=== PATIENT | male | born 1990 | race Caucasian/White ===

== ENCOUNTER 2021-09-10 12:08 | Emergency (ER) | payer BC, OTHER ==
[2021-09-10 13:01] VITALS: RESP 18; TEMP 98.8
[2021-09-10] MEDS ORDERED: LIDOCAINE 1% INJ 10MG/ML (20 ML MDV) SQ STA (14:24)
--- NOTE | 2021-09-10 14:59 | ED ---
General Adult HPI - General Chief complaint: Skin/Abscess/Foreign Body Stated complaint: rectal pain Time Seen by Provider: 09/10/21 14:02 Source: patient, RN notes reviewed Mode of arrival: ambulatory Limitations: no limitations - History of Present Illness Initial comments: Patient's a 31-year-old male presented to the emergency room today with chief complaint of a rectal abscess. Patient does admit that he's had some pain and pressure over the last week. He does admit that he went to the family doctor yesterday was then started on a antibiotic of Bactrim. He states it will 3 doses. Patient does admit that it is common larger over the last few days. Patient was concerned. There is no drainage. He denies any other complaints or symptoms. - Related Data Previous Rx's Medication Instructions Recorded Hydrocodone/Acetaminophen [[place] 1 - 2 each PO Q4HR PRN #30 tab 04/06/15 5-325] Allergies Allergy/AdvReac Type Severity Reaction Status Date / Time No Known Allergies Allergy Verified 09/10/21 13:01 Review of Systems ROS Statement: Those systems with pertinent positive or pertinent negative responses have been documented in the HPI. ROS Other: All systems not noted in ROS Statement are negative. Past Medical History Past Medical History: No Reported History History of Any Multi-Drug Resistant Organisms: None Reported Past Surgical History: Hernia Repair Past Anesthesia/Blood Transfusion Reactions: No Reported Reaction Past Psychological History: No Psychological Hx Reported Smoking Status: Never smoker Past Alcohol Use History: Rare Past Drug Use History: None Reported - Past Family History Mother Family Medical History: No Reported History General Exam - General Exam Comments Initial Comments: General: The patient is awake and alert, in no distress, and does not appear acutely ill. Eye: There is normal conjunctiva bilaterally. No signs of icterus. Ears, nose, mouth and throat: There are moist mucous membranes and no oral lesions. Neck: The neck is supple, there is no tenderness or JVD. Musculoskeletal: Normal ROM, no tenderness. Neurological: A&O x 3. CN II-XII intact, There are no obvious motor or sensory deficits. Coordination appears grossly intact. Speech is normal. Skin: Skin is warm and dry and no rashes or lesions are noted. : Patient does have a perirectal abscess the right side. Psychiatric: Cooperative, appropriate mood & affect, normal judgment. Limitations: no limitations Course Vital Signs 09/10/21 12:57 Temperature 98.8 F Pulse Rate 107 H Respiratory 18 Rate Blood Pressure 141/87 O2 Sat by Pulse 98 Oximetry Medical Decision Making - Medical Decision Making Patient was seen in conjunction with Dr. Navarro. Patient was agreeable to attempting to drain abscess here in the emergency room. Patient did have good drainage. He tolerated procedure well. Patient is advised continue his antibi otics that were previously prescribed and follow-up family doctor and general surgeon. Advised return if any symptoms increase or worsen or for any other concerns. Disposition Clinical Impression: Perirectal abscess Disposition: HOME SELF-CARE Condition: Good Instructions (If sedation given, give patient instructions): Abscess Incision and Drainage (ED) Additional Instructions: Please continue warm compresses and antibiotic as prescribed follow-up the family physician/surgeon over the next 2 days if not improving. Return here to emergency room if any symptoms increase worsen or fail concerns. Is patient prescribed a controlled substance at d/c from ED?: No Referrals: Elizabeth Fuentes DO [Primary Care Provider] - 1-2 days Adiel Pierce MD [STAFF PHYSICIAN] - 1-2 days Time of Disposition: 14:58
[2021-09-10 15:17] VITALS: BP 136/82; PULSE 100
== END 2021-09-10 15:17 | disposition home or self-care (01) ==
LOC: EC 12:08
DX: K61.1 Rectal abscess (principal)
CPT/HCPCS: 99283; J2001

== ENCOUNTER → 2024-01-29 | Outpatient (CLI) | payer BC ==
--- NOTE | 2024-01-30 21:25 | CT ---
"EXAMINATION TYPE: CT abdomen pelvis w con DATE OF EXAM: 01/29/2024 COMPARISON: None INDICATION: elevated liver enzymes, LLQ pain DLP: 2051 mGycm, Automated exposure control for dose reduction was used. CONTRAST: 100 mL of Isovue 300. Study performed with Oral Contrast TECHNIQUE: Axial images were obtained from above the diaphragm to the pubic rami in the axial plane a t 5 mm thick sections. Reconstructed images are reviewed on the computer in the coronal plane. FINDINGS: Limited CT sections are obtained the lung bases. The lung bases are clear. CT ABDOMEN: Liver: Normal Spleen: Normal Pancreas: Normal Adrenal glands: The adrenal glands are normal. Gallbladder: Normal Kidneys: No masses are evident. No hydronephrosis is present. No cysts are present. Delayed images were obtained through the kidneys, which remain unremarkable. Aorta: Normal Inferior vena cava: Normal. CT PELVIS: There is some mild inflammatory change adjacent to the distal descending colon and sigmoid colon junc tion. Mild diverticulosis may be present. No free air is evident. No abscess formation is evident. Th ere are loops of bowel which are incompletely distended or lack oral contrast limiting their evaluati on. Appendix: Normal as visualized. Urinary bladder: Normal. Genitourinary structures: Uterus and ovaries are not identified. Osseous structures: No suspicious lytic or sclerotic lesions. IMPRESSION: 1. Mild acute diverticulitis at the junction of the descending colon and sigmoid colon. No abscess f ormation or free air evident. A Yellow level critical message alert has been initiated for Elizabeth Fuentes DO via the [employer] 36 0 | Critical Results System on 01/30/2024 9:23 PM. This message alert has been sent to Elizabeth Fuentes DO via the preferences provided by the clinician for the receipt of Radiology Critical Findings. Mess age ID [id number]."
== END | disposition home or self-care (01) ==
LOC: RADCTMAIN 09:47
PROVIDERS: ATTEND Family Medicine
DX: K57.32 Diverticulitis of large intestine without perforation or abscess without bleeding (principal); R74.01 Elevation of levels of liver transaminase levels
CPT/HCPCS: 74177; Q9967

== ENCOUNTER → 2024-08-17 | Outpatient (CLI) | payer BC ==
--- NOTE | 2024-08-17 17:00 | CA ---
Transthoracic Echo Report Name: Chadd Moreira Age: 34 Gender: M : 1990 Exam Date: 08/17/2024 13:32 Exam Location: [place] [facility] Ht (in): 72 Wt (lb): 265 Ordering Physician: Elizabeth Fuentes DO Attending/Referring Phys: Jocelyn Russ NPC Svp [employer] Sanam Diana, ZEE Procedure CPT: Indications: R60.0 LOCALIZED EDEMA Cardiac Hx: Technical Quality: Fair Contrast 1: Total Dose (mL): Contrast 2: Total Dose (mL): MEASUREMENTS (Male / Female) Normal Values 2D ECHO LV Diastolic Volume MOD BP 57.3 cm??? 67 - 155 / 56 - 104 cm??? LV Systolic Volume MOD BP 25.2 cm??? 22 - 58 / 19 - 49 cm??? LV Ejection Fraction MOD BP 55.9 % >= 55 % LV Cardiac Index MOD BP 1160.8 cm???/min???m??? LV Diastolic Volume MOD 4C 66.9 cm??? LV Systolic Volume MOD 4C 22.1 cm??? LV Ejection Fraction MOD 4C 67.0 % LV Cardiac Index MOD 4C 1624.0 cm???/min???m??? LV Diastolic Length 4C 7.7 cm LV Systolic Length 4C 5.7 cm LV Diastolic Volume MOD 2C 45.9 cm??? LV Systolic Volume MOD 2C 26.0 cm??? LV Ejection Fraction MOD 2C 43.3 % LV Cardiac Index MOD 2C 719.9 cm???/min???m??? LV Diastolic Length 2C 7.2 cm LV Systolic Length 2C 6.4 cm LA Volume 53.6 cm??? 18 - 58 / 22 - 52 cm??? LA Volume Index 21.3 cm???/m??? 16 - 28 cm???/m??? M-MODE Aortic Root Diameter MM 3.4 cm LA Systolic Diameter MM 4.7 cm LA Ao Ratio MM 1.4 AV Cusp Separation MM 2.2 cm DOPPLER MV Area PHT 2.9 cm??? Mitral E Point Velocity 69.5 cm/s Mitral A Point Velocity 81.2 cm/s Mitral E to A Ratio 0.9 MV Deceleration Time 258.0 ms FINDINGS Left Ventricle Left ventricular ejection fraction is estimated at 55-60%. Normal left ventricular systolic function with no obvious regional wall motion abnormalities. Left ventricular cavity size normal. Left ventricular wall thickness normal. Right Ventricle Normal right ventricular size and function. Right ventricular systolic pressure within normal limits. Right Atrium Normal right atrial size. Left Atrium Normal left atrial size. Mitral Valve Structurally normal mitral valve. Trace mitral regurgitation. No mitral stenosis. Aortic Valve Trileaflet aortic valve. No aortic valve stenosis or regurgitation. Tricuspid Valve Structurally normal tricuspid valve. No tricuspid stenosis. Trace tricuspid regurgitation. Pulmonic Valve Structurally normal pulmonic valve. Trace pulmonic regurgitation. No pulmonic stenosis. Pericardium No pericardial or pleural effusion. Aorta Normal size aortic root and proximal ascending aorta. CONCLUSIONS LVEF 55 to 60% No obvious regional wall motion abnormality No significant valve dysfunctions appreciated Normal RV size and systolic function Previewed by: Dr Santhosh Lynch (Electronically Signed) Final Date: 17 August 2024 16:59
== END | disposition home or self-care (01) ==
LOC: RADECHMAIN 13:17
PROVIDERS: ATTEND Family Medicine
DX: R60.0 Localized edema (principal); I34.0 Nonrheumatic mitral (valve) insufficiency; I07.1 Rheumatic tricuspid insufficiency; I37.1 Nonrheumatic pulmonary valve insufficiency
CPT/HCPCS: 93306